=== PATIENT | female | born 1950 | race Caucasian/White ===

== ENCOUNTER 2025-04-13 15:32 | Inpatient (IN) ==
[2025-04-13] MEDS ORDERED: IOPAMIDOL 100 ML BOTTLE IV ONE (15:33)
[2025-04-13 16:43] LABS: Basophils # (Auto) 0.09 K/mcL (0.00-0.30); Basophils % (Auto) 0.8 % (0.0-2.0); Eosinophils # (Auto) 0.46 K/mcL (0.00-0.70); Eosinophils % (Auto) 4.1 % (0.0-7.0); Hematocrit 25.6 % (34.1-44.9); Hemoglobin 7.7 g/dL (11.2-15.7); Lymphocytes # (Auto) 1.32 K/mcL (1.50-4.80); Lymphocytes % (Auto) 11.8 % (15.5-49.0); Mean Corpuscular HGB Conc 30.1 g/dL (31.0-36.0); Monocytes # (Auto) 1.01 K/mcL (0.10-0.90); Monocytes % (Auto) 9.0 % (1.0-12.0); Neutrophils % (Auto) 73.9 % (38.0-78.0); Platelet Count 540 K/mcL (140-440); RBC 2.81 M/mcL (3.59-5.38); WBC 11.2 K/mcL (4.5-11.0)
[2025-04-13 16:53] LABS: ALT/SGPT 10 U/L (<40); AST/SGOT 15 U/L (<32); Albumin 3.6 gm/dL (3.2-5.2); Albumin/Globulin Ratio 1.2 (1.0-2.3); Alkaline Phosphatase 147 U/L (39-117); Anion Gap 11.0 (8.0-16.0); Bilirubin,Total 0.2 mg/dL (0.1-1.0); Blood Urea Nitrogen 33 mg/dL (8-23); Calcium 8.7 mg/dL (8.6-10.4); Carbon Dioxide 25 mmol/L (22-30); Chloride 101 mmol/L (96-108); Globulin 3.0 gm/dL (2.2-3.7); Glucose 113 mg/dL (70-105); Potassium 4.6 mmol/L (3.3-5.1); Sodium 137 mmol/L (133-145)
[2025-04-13] MEDS: FUROSEMIDE 40 MG/4 ML VIAL IV ONE (17:07)
[2025-04-13 21:45] LABS: Phosphorous 3.4 mg/dL (2.5-4.5)
[2025-04-13] MEDS ORDERED: POTASSIUM CHLORIDE 20 MEQ TABLET PO PRN ×2 (21:50)
[2025-04-13] MEDS ORDERED: POTASSIUM CHLORIDE 40 MEQ in DEXTROSE 5% IN WATER 500 ML IV PRN (21:50)
[2025-04-13] MEDS ORDERED: ENALAPRILAT 1.25 MG/ML VIAL IV PRN (21:50)
[2025-04-13] MEDS ORDERED: POLYETHYLENE GLYCOL 3350 17 GM PACKET PO PRN (21:50)
[2025-04-13] MEDS ORDERED: IPRATROPIUM/ALBUTEROL 3 ML AMPUL.NEB NEB PRN (21:50)
[2025-04-13] MEDS ORDERED: ONDANSETRON 4 MG/2 ML VIAL IV PRN (21:50)
[2025-04-13] MEDS ORDERED: METOCLOPRAMIDE 10 MG/2 ML VIAL IV PRN (21:50)
[2025-04-13] MEDS ORDERED: MAGNESIUM SULFATE 2 GM/50 ML BAG IV PRN (21:50)
[2025-04-13] MEDS ORDERED: METOPROLOL TARTRATE 5 MG/5 ML VIAL IV PRN (21:50)
[2025-04-14 07:43] LABS: ALT/SGPT 8 U/L (<40); AST/SGOT 13 U/L (<32); Albumin 3.0 gm/dL (3.2-5.2); Albumin/Globulin Ratio 1.3 (1.0-2.3); Alkaline Phosphatase 111 U/L (39-117); Anion Gap 11.0 (8.0-16.0); Bilirubin,Direct < 0.2 mg/dL (0-0.3); Bilirubin,Total 0.3 mg/dL (0.1-1.0); Blood Urea Nitrogen 24 mg/dL (8-23); Calcium 8.2 mg/dL (8.6-10.4); Carbon Dioxide 24 mmol/L (22-30); Chloride 100 mmol/L (96-108); Globulin 2.4 gm/dL (2.2-3.7); Glucose 88 mg/dL (70-105); Phosphorous 3.0 mg/dL (2.5-4.5); Potassium 4.2 mmol/L (3.3-5.1); Sodium 135 mmol/L (133-145); Triglycerides 64 mg/dL (<150); Uric Acid 7.8 mg/dL (2.5-8.0)
[2025-04-14] MEDS ORDERED: CETIRIZINE 10 MG TABLET PO PRN (07:58)
[2025-04-14] MEDS: buPROPion 150 MG TAB.SR.12H PO SCH (08:47)
[2025-04-14] MEDS: SPIRONOLACTONE 25 MG TABLET PO SCH (08:47)
[2025-04-14] MEDS: CARVEDILOL 12.5 MG TABLET PO SCH (08:48)
[2025-04-14] MEDS: ENOXAPARIN 40 MG/0.4 ML SYRINGE SQ SCH (08:51)
[2025-04-14 08:52] LABS: Basophils # (Auto) 0.08 K/mcL (0.00-0.30); Basophils % (Auto) 1.0 % (0.0-2.0); Eosinophils # (Auto) 0.51 K/mcL (0.00-0.70); Eosinophils % (Auto) 6.3 % (0.0-7.0); Hematocrit 21.7 % (34.1-44.9); Hemoglobin 6.5 g/dL (11.2-15.7); Lymphocytes # (Auto) 1.40 K/mcL (1.50-4.80); Lymphocytes % (Auto) 17.2 % (15.5-49.0); Mean Corpuscular HGB Conc 30.0 g/dL (31.0-36.0); Monocytes # (Auto) 0.98 K/mcL (0.10-0.90); Monocytes % (Auto) 12.1 % (1.0-12.0); Neutrophils % (Auto) 63.0 % (38.0-78.0); Platelet Count 434 K/mcL (140-440); RBC 2.35 M/mcL (3.59-5.38); WBC 8.1 K/mcL (4.5-11.0)
[2025-04-14] MEDS: FUROSEMIDE 100 MG/10 ML VIAL IV SCH (09:25)
[2025-04-14] MEDS: 0.9 % SODIUM CHLORIDE 250 ML IV SCH (12:06)
[2025-04-14] MEDS: ACETAMINOPHEN 325 MG TABLET PO PRN (12:43)
[2025-04-14] MEDS: FUROSEMIDE 40 MG/4 ML VIAL IV ONE (14:49)
[2025-04-14] MEDS: GABAPENTIN 300 MG CAPSULE PO ONE (23:27)
[2025-04-14] MEDS: GABAPENTIN 300 MG CAPSULE ONE (23:41)
[2025-04-15 07:48] LABS: Basophils # (Auto) 0.08 K/mcL (0.00-0.30); Basophils % (Auto) 1.0 % (0.0-2.0); Eosinophils # (Auto) 0.58 K/mcL (0.00-0.70); Eosinophils % (Auto) 7.5 % (0.0-7.0); Hematocrit 26.8 % (34.1-44.9); Hemoglobin 8.6 g/dL (11.2-15.7); Lymphocytes # (Auto) 1.60 K/mcL (1.50-4.80); Lymphocytes % (Auto) 20.6 % (15.5-49.0); Mean Corpuscular HGB Conc 32.1 g/dL (31.0-36.0); Monocytes # (Auto) 0.81 K/mcL (0.10-0.90); Monocytes % (Auto) 10.4 % (1.0-12.0); Neutrophils % (Auto) 60.2 % (38.0-78.0); Platelet Count 411 K/mcL (140-440); RBC 3.01 M/mcL (3.59-5.38); WBC 7.8 K/mcL (4.5-11.0)
[2025-04-15 08:13] LABS: ALT/SGPT 7 U/L (<40); AST/SGOT 13 U/L (<32); Albumin 3.0 gm/dL (3.2-5.2); Albumin/Globulin Ratio 1.2 (1.0-2.3); Alkaline Phosphatase 105 U/L (39-117); Anion Gap 7.0 (8.0-16.0); Bilirubin,Direct 0.2 mg/dL (<0.3); Bilirubin,Total 0.4 mg/dL (0.1-1.0); Blood Urea Nitrogen 20 mg/dL (8-23); Calcium 8.2 mg/dL (8.6-10.4); Carbon Dioxide 28 mmol/L (22-30); Chloride 99 mmol/L (96-108); Globulin 2.6 gm/dL (2.2-3.7); Glucose 92 mg/dL (70-105); Phosphorous 3.0 mg/dL (2.5-4.5); Potassium 4.1 mmol/L (3.3-5.1); Sodium 134 mmol/L (133-145); Triglycerides 61 mg/dL (<150); Uric Acid 8.5 mg/dL (2.5-8.0)
[2025-04-15] MEDS: ALBUMIN HUMAN 12.5 GM/50 ML VIAL IV ONE (09:19)
[2025-04-15] MEDS: PANTOPRAZOLE 40 MG VIAL IV ONE (10:51)
[2025-04-15] MEDS: PEG 3350/NA SULF,BICARB,CL/KCL 4,000 ML ORAL.SOL PO ONE (13:34)
[2025-04-15] MEDS: PANTOPRAZOLE 40 MG VIAL IV SCH (17:09)
[2025-04-15] MEDS: GABAPENTIN 300 MG CAPSULE PO SCH (20:09)
[2025-04-16 06:48] LABS: Hematocrit 29.1 % (34.1-44.9); Hemoglobin 9.1 g/dL (11.2-15.7)
[2025-04-16 07:06] LABS: ALT/SGPT 7 U/L (<40); AST/SGOT 12 U/L (<32); Albumin 2.9 gm/dL (3.2-5.2); Albumin/Globulin Ratio 1.1 (1.0-2.3); Alkaline Phosphatase 100 U/L (39-117); Anion Gap 9.0 (8.0-16.0); Bilirubin,Direct < 0.2 mg/dL (0-0.3); Bilirubin,Total 0.3 mg/dL (0.1-1.0); Blood Urea Nitrogen 13 mg/dL (8-23); Calcium 8.5 mg/dL (8.6-10.4); Carbon Dioxide 27 mmol/L (22-30); Chloride 99 mmol/L (96-108); Globulin 2.7 gm/dL (2.2-3.7); Glucose 85 mg/dL (70-105); Phosphorous 2.8 mg/dL (2.5-4.5); Potassium 4.0 mmol/L (3.3-5.1); Sodium 135 mmol/L (133-145); Triglycerides 90 mg/dL (<150); Uric Acid 9.0 mg/dL (2.5-8.0)
[2025-04-16] MEDS ORDERED: PROPOFOL 200 MG/20 ML VIAL IV ONE (10:23)
[2025-04-16] MEDS ORDERED: LIDOCAINE 2% PF 5 ML VIAL ONE (10:31)
[2025-04-17 03:32] LABS: Creatinine, Spot Urine 36.9 mg/dL (28.0-217.0); Pro:Crea Ratio 0.16 (<0.20); Protein, Spot Urine 6.0 mg/dL
[2025-04-17 06:23] LABS: Hematocrit 30.5 % (34.1-44.9); Hemoglobin 9.5 g/dL (11.2-15.7)
[2025-04-17 06:48] LABS: ALT/SGPT 8 U/L (<40); AST/SGOT 13 U/L (<32); Albumin 3.0 gm/dL (3.2-5.2); Albumin/Globulin Ratio 1.1 (1.0-2.3); Alkaline Phosphatase 105 U/L (39-117); Anion Gap 7.0 (8.0-16.0); Bilirubin,Direct < 0.2 mg/dL (0-0.3); Bilirubin,Total 0.3 mg/dL (0.1-1.0); Blood Urea Nitrogen 16 mg/dL (8-23); Calcium 8.5 mg/dL (8.6-10.4); Carbon Dioxide 27 mmol/L (22-30); Chloride 97 mmol/L (96-108); Globulin 2.8 gm/dL (2.2-3.7); Glucose 91 mg/dL (70-105); Phosphorous 3.5 mg/dL (2.5-4.5); Potassium 4.6 mmol/L (3.3-5.1); Sodium 131 mmol/L (133-145); Triglycerides 75 mg/dL (<150); Uric Acid 8.0 mg/dL (2.5-8.0)
[2025-04-17] MEDS: FUROSEMIDE 20 MG TABLET PO SCH (13:26)
[2025-04-18] MEDS: PANTOPRAZOLE 40 MG TABLET PO SCH (08:35)
[2025-04-18] MEDS: FUROSEMIDE 40 MG TABLET PO SCH (08:35)
[2025-04-18] MEDS: SUCRALFATE 1 GM/10 ML ORAL.SUSP PO SCH (11:47)
[2025-04-18 12:28] VITALS: TEMP 98.5; O2SAT 94
== END 2025-04-18 13:43 | disposition home health service (06) | DRG 291 ==
LOC: ED 15:32 → MEDSUR 21:48
PROVIDERS: ADMIT Internal Medicine; ATTEND Internal Medicine